=== PATIENT | female | born 1990 | race Caucasian/White ===

== ENCOUNTER 2017-08-20 21:26 | Emergency (ER) | payer SELFPAY ==
[~2017-08-20] VITALS: Ht 160 cm; Wt 81.0 kg
[2017-08-20 22:26] LABS: APPEARANCE,URINE TURBID (CLEAR); GLUCOSE, URINE (UA) NEGATIVE (NEGATIVE); KETONES,URINE NEGATIVE (NEGATIVE); LEUKOCYTE ESTERASE ,URINE SMALL (NEGATIVE); OCCULT BLOOD,URINE LARGE (NEGATIVE); PROTEIN,URINE SEE CONFIRM (NEGATIVE)
[2017-08-20] MEDS ORDERED: PHENAZOPYRIDINE HCL 100 MG TABLET PO ONE (22:30)
[2017-08-20] MEDS ORDERED: CEPHALEXIN MONOHYDRATE 500 MG CAPSULE PO ONE (22:30)
[2017-08-20 22:43] LABS: SQUAMOUS EPITHELIAL CELL,UR Few /LPF (None Seen); SULFOSALICYLIC ACID,URINE 3+ (Negative)
[2017-08-20 22:52] VITALS: BP 130/78
== END 2017-08-20 23:03 | disposition home or self-care (01) ==
LOC: EMS 21:28
DX: N39.0 Urinary tract infection, site not specified (principal)
CPT/HCPCS: 87086; 99284